=== PATIENT | female | born 1985 | race Caucasian/White ===

== ENCOUNTER 2025-02-14 11:40 | Inpatient (IN) | payer MEDICAID ==
[~2025-02-14] VITALS: Ht 157.5 cm; Wt 86.5 kg
[~2025-02-14 11:40] MED LIST: HYDR-3965 PO
[2025-02-14 12:23] LABS: BASOPHILS # (AUTO) 0.1 X10'3 (0-0.2); BASOPHILS % (AUTO) 0.7 % (0-1); EOSINOPHILS # (AUTO) 0.1 X10'3 (0-0.9); EOSINOPHILS % (AUTO) 0.6 % (0-6); HEMATOCRIT 36.8 % (35.0-45.0); HEMOGLOBIN 11.9 g/dl (12.0-16.0); LYMPHOCYTES # (AUTO) 1.9 X10'3 (1.1-4.8); MEAN CORPUSCULAR HEMOGLOBIN 27.2 PG (27.0-31.0); MEAN CORPUSCULAR HGB CONC 32.3 g/dL (33.0-36.5); MEAN CORPUSCULAR VOLUME 84.3 FL (78-98); MONOCYTES # (AUTO) 0.5 X10'3 (0-0.9); MONOCYTES % (AUTO) 4.7 % (2-12); NEUTROPHILS # (AUTO) 8.8 X10'3 (1.8-7.7); PLATELET COUNT 398 X10'3 (140-440); RED BLOOD COUNT 4.37 X10'6 (4.20-5.60); RED CELL DISTRIBUTION WIDTH 14.3 % (11.5-14.5); WHITE BLOOD COUNT 11.4 X10'3 (4.5-11.0)
[2025-02-14 12:37] LABS: ACETAMINOPHEN 18.6 UG/ML (10-30); ALANINE AMINOTRANSFERASE 24 U/L (12-78); ALBUMIN 3.6 G/DL (3.4-5.0); ALBUMIN/GLOBULIN RATIO 0.9 (1.1-1.5); ALKALINE PHOSPHATASE 75 IU/L (46-116); ANION GAP 12 (8-16); ASPARTATE AMINO TRANSFERASE 20 U/L (10-37); BILIRUBIN,TOTAL 0.3 MG/DL (0.1-1.0); BLOOD UREA NITROGEN 9 MG/DL (7-18); BUN/CREATININE RATIO 15.5 (10.0-20.0); CALCIUM 8.9 MG/DL (8.5-10.1); CHLORIDE 104 MMOL/L (99-107); CREATININE 0.58 MG/DL (0.40-0.90); GLUCOSE 169 MG/DL (70-104); POTASSIUM 3.7 MMOL/L (3.5-5.1); SODIUM 137 MMOL/L (135-145); TOTAL CARBON DIOXIDE 21.5 MMOL/L (24-32); TOTAL PROTEIN 7.4 G/DL (6.4-8.2); eCRCL 103 ML/MIN; eGFR > 90 ML/MIN
[2025-02-14] MEDS ORDERED: acetylcysteine 200 MG/ml 4ml vial PO ONE (13:20)
[2025-02-14] MEDS ORDERED: ACETYLCYSTEINE IV SCH (13:40)
[2025-02-14] MEDS ORDERED: DEXTROSE 5% IV SCH (13:40)
[2025-02-14] MEDS ORDERED: WATER IV SCH (13:40)
[2025-02-14 13:59] LABS: URINE AMPHETAMINE SCREEN NEGATIVE (Neg); URINE BARBITUATE SCREEN NEGATIVE (Neg); URINE BENZODIAZEPINES SCREEN NEGATIVE (Neg); URINE CANNABINOID SCREEN POSITIVE (Neg); URINE COCAINE SCREEN NEGATIVE (Neg); URINE METHADONE SCREEN NEGATIVE (Neg); URINE OPIATE SCREEN NEGATIVE (Neg); URINE PHENCYCLIDINE SCREEN NEGATIVE (Neg)
[2025-02-14] MEDS ORDERED: potassium Cl 40MEQ/1/2NS 520ml 520 ML IV PRN (14:40)
[2025-02-14] MEDS ORDERED: mag hydrox/Alum hydrox/simeth 30ml oral suspension PO PRN (14:40)
[2025-02-14] MEDS ORDERED: magnesium sulf-water 2g/50mL 50 ML IV PRN (14:40)
[2025-02-14] MEDS ORDERED: magnesium hydroxide 30ml (MOM) UD suspension PO PRN (14:40)
[2025-02-14] MEDS ORDERED: potassium Cl 20 mEq SR tablet PO PRN ×2 (14:40)
[2025-02-14] MEDS ORDERED: magnesium Cl slow-release 64mg tablet PO PRN (14:40)
[2025-02-14] MEDS ORDERED: magnesium sulf-water 4G/100mL 100 ML IV PRN (14:40)
[2025-02-14] MEDS ORDERED: ACETYLCYSTEINE IV ONE ×2 (14:50→16:00)
[2025-02-14] MEDS ORDERED: WATER IV ONE ×2 (14:50→16:00)
[2025-02-14] MEDS ORDERED: DEXTROSE 5% IV ONE ×2 (14:50→16:00)
[2025-02-14] MEDS: ACETYLCYSTEINE IV ONE (14:51)
[2025-02-14] MEDS: DEXTROSE 5% IV ONE (14:51)
[2025-02-14] MEDS: WATER IV ONE (14:51)
[2025-02-14] MEDS ORDERED: acetylcysteine IV (Acetadote) 0 MG in dextrose 5%-water 1,000 ML IV ONE (14:55)
[2025-02-14] MEDS: pantoprazole 40 MG vial IV SCH (15:16)
[2025-02-14 15:27] LABS: MAGNESIUM 1.7 MG/DL (1.5-2.4); PRO BRAIN NATRIURETIC PEPTIDE 319 PG/ML (0-125)
[2025-02-14 15:41] LABS: PROTHROMBIN TIME 10.3 SECONDS (9.0-12.0)
[2025-02-14 15:44] LABS: PHOSPHORUS 3.4 MG/DL (2.3-4.5)
[2025-02-14] MEDS: ondansetron/PF 4mg/2ml inj IV PRN (15:48)
[2025-02-14 16:07] LABS: BILIRUBIN,URINE NEGATIVE (Neg); CLARITY,URINE CLEAR (Clear); COLOR,URINE STRAW (Yellow); GLUCOSE, URINE NEGATIVE (Neg); KETONES,URINE TRACE mg/dl (Neg); LEUKOCYTE ESTERASE ,URINE NEGATIVE (Neg); NITRITES, URINE NEGATIVE (Neg); OCCULT BLOOD,URINE NEGATIVE (Neg); PROTEIN,URINE NEGATIVE (Neg); UROBILINOGEN,URINE 0.2 E.U/dL (0.2-1.0)
[2025-02-14 16:10] LABS: UA COLLECTION TYPE CLN CATCH MIDSTREAM
[2025-02-14] MEDS: dexamethasone sod phosphate 10mg/ml inj IV STA (16:25)
[2025-02-14] MEDS: diphenhydrAMINE 50 mg/ml inj IV ONE (16:25)
[2025-02-14] MEDS: WATER IV SCH (17:57)
[2025-02-14] MEDS: ACETYLCYSTEINE IV SCH (17:57)
[2025-02-14] MEDS: DEXTROSE 5% IV SCH (17:57)
[2025-02-14 20:00] VITALS: BP 124/73; PULSE 83; RESP 18; TEMP 97; O2SAT 98
[2025-02-14] MEDS: K and/or MAG REPLACEMENT MC SCH (20:00)
[2025-02-14 21:00] VITALS: RESP 18; O2SAT 97
[2025-02-14] MEDS: famotidine/PF 10 mg/ml inj IV SCH (22:17)
[2025-02-14 22:35] LABS: ALANINE AMINOTRANSFERASE 22 U/L (12-78); ALBUMIN 3.5 G/DL (3.4-5.0); ALBUMIN/GLOBULIN RATIO 0.9 (1.1-1.5); ALKALINE PHOSPHATASE 73 IU/L (46-116); ASPARTATE AMINO TRANSFERASE 13 U/L (10-37); BILIRUBIN,DIRECT 0.1 MG/DL (0-0.3); BILIRUBIN,TOTAL 0.3 MG/DL (0.1-1.0); TOTAL PROTEIN 7.6 G/DL (6.4-8.2)
[2025-02-14] MEDS ORDERED: Melatonin 3mg tablet PO PRN (22:40)
[2025-02-14 23:19] LABS: ACETAMINOPHEN < 2.0 UG/ML (10-30)
[2025-02-14] MEDS: morphine 2 MG/ML inj. syringe IV PRN (23:25)
[2025-02-15 02:00] VITALS: BP 118/75; PULSE 80; RESP 20; TEMP 97.6; O2SAT 97
[2025-02-15 06:41] LABS: BASOPHILS % (AUTO) 0.5 % (0-1); EOSINOPHILS % (AUTO) 0 % (0-6); HEMATOCRIT 38.2 % (35.0-45.0); HEMOGLOBIN 12.4 g/dl (12.0-16.0); LYMPHOCYTES # (AUTO) 1.1 X10'3 (1.1-4.8); LYMPHOCYTES % (AUTO) 11.5 % (21-51); MEAN CORPUSCULAR HEMOGLOBIN 27.7 PG (27.0-31.0); MEAN CORPUSCULAR HGB CONC 32.6 g/dL (33.0-36.5); MEAN CORPUSCULAR VOLUME 85.1 FL (78-98); MEAN PLATELET VOLUME 7.4 FL (7.4-10.4); MONOCYTES # (AUTO) 0.5 X10'3 (0-0.9); MONOCYTES % (AUTO) 4.6 % (2-12); NEUTROPHILS # (AUTO) 8.3 X10'3 (1.8-7.7); NEUTROPHILS % (AUTO) 83.4 % (42-75); PLATELET COUNT 428 X10'3 (140-440); RED BLOOD COUNT 4.49 X10'6 (4.20-5.60); RED CELL DISTRIBUTION WIDTH 14.5 % (11.5-14.5)
[2025-02-15 06:44] LABS: INR 1.1 INR; PROTHROMBIN TIME 11.2 SECONDS (9.0-12.0)
[2025-02-15 06:53] LABS: ALANINE AMINOTRANSFERASE 20 U/L (12-78); ALBUMIN 3.4 G/DL (3.4-5.0); ALBUMIN/GLOBULIN RATIO 0.8 (1.1-1.5); ALKALINE PHOSPHATASE 72 IU/L (46-116); ANION GAP 14 (8-16); ASPARTATE AMINO TRANSFERASE 10 U/L (10-37); BILIRUBIN,TOTAL 0.3 MG/DL (0.1-1.0); BLOOD UREA NITROGEN 10 MG/DL (7-18); BUN/CREATININE RATIO 17.2 (10.0-20.0); CHLORIDE 103 MMOL/L (99-107); CREATININE 0.58 MG/DL (0.40-0.90); GLUCOSE 198 MG/DL (70-104); POTASSIUM 3.8 MMOL/L (3.5-5.1); SODIUM 139 MMOL/L (135-145); TOTAL PROTEIN 7.5 G/DL (6.4-8.2); eCRCL 103 ML/MIN; eGFR > 90 ML/MIN
[2025-02-15 06:54] LABS: CHOL/HDL RATIO 4.4 (0.00-4.99); CHOLESTEROL 173 MG/DL (0-200); HDL CHOLESTEROL 39 MG/DL (35-60); LDL CHOLESTEROL 112 MG/DL (50-100); MAGNESIUM 1.8 MG/DL (1.5-2.4); TRIGLYCERIDES 143 MG/DL (20-135)
[2025-02-15 06:56] LABS: ACETAMINOPHEN < 2.0 UG/ML (10-30)
[2025-02-15] MEDS: loratadine 10mg tablet PO SCH (10:21)
[2025-02-15] MEDS ORDERED: dextrose 50%-water 50ml dispensing syringe IV PRN ×2 (10:25)
[2025-02-15] MEDS ORDERED: glucagon, human recombinant 1mg kit SUBCUT PRN (10:25)
[2025-02-15] MEDS ORDERED: DEXTROSE 15 GM of carb/4 tabs (each vial/BOTTLE has 4 tablets) PO PRN ×2 (10:25)
[2025-02-15 11:21] VITALS: BP 134/77; PULSE 78; RESP 16; TEMP 97.5; O2SAT 97
[2025-02-15] MEDS: INSULIN LISPRO 100 UNIT/ML INSULN.PEN MULTI-DOSE SQ SCH (12:00)
[2025-02-15] MEDS: amox tr/potassium clavulanate 875/125mg TAB PO SCH (12:14)
[2025-02-15] MEDS: LIDOCAINE 5% OINTMENT 35GM TP SCH (12:15)
[2025-02-15] MEDS ORDERED: HYDROcodone/acetaminophen 10/325mg tab PO ONE (13:40)
[2025-02-15] MEDS: morphine 2 MG/ML inj. syringe IV PRN ×2 (14:06→21:03)
[2025-02-15 15:09] LABS: INR 1.1 INR; PROTHROMBIN TIME 11.2 SECONDS (9.0-12.0)
[2025-02-15 15:18] LABS: ALANINE AMINOTRANSFERASE 25 U/L (12-78); ALBUMIN 3.5 G/DL (3.4-5.0); ALBUMIN/GLOBULIN RATIO 0.8 (1.1-1.5); ALKALINE PHOSPHATASE 72 IU/L (46-116); ASPARTATE AMINO TRANSFERASE 19 U/L (10-37); BILIRUBIN,DIRECT 0.1 MG/DL (0-0.3); BILIRUBIN,TOTAL 0.3 MG/DL (0.1-1.0); TOTAL PROTEIN 7.8 G/DL (6.4-8.2)
[2025-02-15 15:36] LABS: ACETAMINOPHEN < 2.0 UG/ML (10-30)
[2025-02-15 15:46] VITALS: BP 119/74; PULSE 87; RESP 16; TEMP 98.5; O2SAT 100
[2025-02-15 18:00] VITALS: BP 136/68; PULSE 91; RESP 18; TEMP 97.3; O2SAT 96
[2025-02-15] MEDS: ketorolac trometh 30MG/ML vial 30 MG/ML VIAL IV ONE (18:04)
[2025-02-15] MEDS ORDERED: HYDROcodone/acetaminophen 10/325mg tab PO PRN (18:20)
[2025-02-15 20:00] VITALS: RESP 18; O2SAT 96
[2025-02-15] MEDS ORDERED: iohexol 300mg/ml 100ml inj. ONE (20:08)
[2025-02-15] MEDS: lactobacillus rhamnosus 10,000 MMU CELLS/CAPSULE PO SCH (20:41)
[2025-02-15] MEDS: famotidine 20mg tablet PO SCH (20:41)
[2025-02-15 21:07] LABS: HCG SERUM QL NEGATIVE
[2025-02-15 22:00] VITALS: BP 106/67; PULSE 85; RESP 16; TEMP 98.8; O2SAT 98
[2025-02-16 02:00] VITALS: BP 128/80; PULSE 82; RESP 18; TEMP 98.2; O2SAT 97
[2025-02-16] MEDS: HYDROcodone/acetaminophen 5mg/325mg tablet PO PRN (02:48)
[2025-02-16 07:00] VITALS: BP 109/79; PULSE 93; RESP 16; TEMP 97.4; O2SAT 93
[2025-02-16 08:13] LABS: PROTHROMBIN TIME 10.3 SECONDS (9.0-12.0)
[2025-02-16 08:28] LABS: BASOPHILS # (AUTO) 0.1 X10'3 (0-0.2); BASOPHILS % (AUTO) 0.6 % (0-1); EOSINOPHILS # (AUTO) 0.1 X10'3 (0-0.9); EOSINOPHILS % (AUTO) 0.6 % (0-6); HEMATOCRIT 36.8 % (35.0-45.0); HEMOGLOBIN 11.9 g/dl (12.0-16.0); LYMPHOCYTES # (AUTO) 2.6 X10'3 (1.1-4.8); LYMPHOCYTES % (AUTO) 24.8 % (21-51); MEAN CORPUSCULAR HGB CONC 32.4 g/dL (33.0-36.5); MEAN CORPUSCULAR VOLUME 83.2 FL (78-98); MEAN PLATELET VOLUME 7.4 FL (7.4-10.4); MONOCYTES # (AUTO) 0.7 X10'3 (0-0.9); MONOCYTES % (AUTO) 6.6 % (2-12); NEUTROPHILS % (AUTO) 67.4 % (42-75); PLATELET COUNT 426 X10'3 (140-440); RED BLOOD COUNT 4.42 X10'6 (4.20-5.60); RED CELL DISTRIBUTION WIDTH 14.9 % (11.5-14.5); WHITE BLOOD COUNT 10.3 X10'3 (4.5-11.0)
[2025-02-16] MEDS ORDERED: AMOX-580 PO (08:34)
[2025-02-16] MEDS ORDERED: LACT1CAP26 PO (08:34)
[2025-02-16 08:35] LABS: ALANINE AMINOTRANSFERASE 26 U/L (12-78); ALBUMIN 3.3 G/DL (3.4-5.0); ALBUMIN/GLOBULIN RATIO 0.9 (1.1-1.5); ALKALINE PHOSPHATASE 67 IU/L (46-116); ANION GAP 12 (8-16); ASPARTATE AMINO TRANSFERASE 25 U/L (10-37); BILIRUBIN,TOTAL 0.4 MG/DL (0.1-1.0); BLOOD UREA NITROGEN 17 MG/DL (7-18); BUN/CREATININE RATIO 26.6 (10.0-20.0); CALCIUM 8.5 MG/DL (8.5-10.1); CHLORIDE 105 MMOL/L (99-107); CREATININE 0.64 MG/DL (0.40-0.90); GLUCOSE 148 MG/DL (70-104); MAGNESIUM 2.1 MG/DL (1.5-2.4); POTASSIUM 3.4 MMOL/L (3.5-5.1); SODIUM 139 MMOL/L (135-145); TOTAL CARBON DIOXIDE 22.1 MMOL/L (24-32); eCRCL 93 ML/MIN; eGFR > 90 ML/MIN
[2025-02-16] MEDS: morphine 2 MG/ML inj. syringe IV PRN (09:25)
[2025-02-16] MEDS: ketorolac trometh 30MG/ML vial 30 MG/ML VIAL IV ONE (11:47)
[2025-02-16] MEDS ORDERED: ACET-1008 PO ×2 (12:34→12:35)
[2025-02-16] MEDS ORDERED: IBUP-1985 PO (12:36)
[2025-02-16 14:00] VITALS: BP 109/65; PULSE 91; RESP 18; TEMP 96.4; O2SAT 95
[2025-02-16] MEDS ORDERED: METF-1203 PO (14:16)
== END 2025-02-16 14:59 | disposition home or self-care (01) | DRG 812 ==
LOC: ER 11:41 → ED HOLD 14:15 → PCU 3S 19:41
PROVIDERS: ADMIT Family Medicine; ATTEND Family Medicine
DX: T39.1X1A Poisoning by 4-Aminophenol derivatives, accidental (unintentional), initial encounter (principal); E11.9 Type 2 diabetes mellitus without complications; E78.5 Hyperlipidemia, unspecified; Z87.891 Personal history of nicotine dependence; Z88.8 Allergy status to other drugs, medicaments and biological substances; Y92.89 Other specified places as the place of occurrence of the external cause
CPT/HCPCS: 36415; 70487; 71045; 80053; 80061; 80076; 80305; 80329; 81003; 82948; 83036; 83605; 83735; 83880; 84100; 84450; 84460; 84484; 84703; 85025; 85610; 87081; 96365; 96375; 99285; A6213; A6258; G0378; J0132; J1100; J1200; J1815; J1885; J2270; J2405; J2470; J3490; J7060; J7070; Q9967